=== PATIENT | male | born 1980 | race Hispanic/Latino ===

== ENCOUNTER 2019-11-23 12:49 | Emergency (ER) | payer BC, OTHER, SELFPAY ==
[2019-11-23] MEDS ORDERED: KETOROLAC 30 MG/ML INJ ONE (13:09)
[2019-11-23] MEDS ORDERED: DIAZEPAM 5 MG TABLET ONE (13:09)
--- NOTE | 2019-11-23 13:46 | ER ---
Nurse's Notes [facility] Name: Milo Harden Age: 39 yrs Sex: Male : 1980 Arrival Date: 11/23/2019 Time: 12:51 Bed 23 Private MD: Diagnosis: Low back pain Presentation: 11/23 12:52 Presenting complaint: Patient states: low back pain after lifting something heavy. sv 12:52 Acuity: MAURICE 4 sv 12:52 Method Of Arrival: Ambulatory sv 12:52 Transition of care: patient was not received from another setting of care. Onset of sv symptoms was November 22, 2019. 14:09 Risk Assessment: Do you want to hurt yourself or someone else? Patient reports no mg2 desire to harm self or others. Initial Sepsis Screen: Does the patient meet any 2 criteria? No. Patient's initial sepsis screen is negative. Initial Sepsis Screen: Does the patient have a suspected source of infection? No. Patient's initial sepsis screen is negative. Care prior to arrival: None. Historical: - Allergies: 12:53 No Known Allergies; sv - PMHx: 12:53 None; sv - PSHx: 12:53 None; sv - Immunization history:: Flu vaccine status is unknown. - Social history:: Patient/guardian denies using alcohol, street drugs, The patient lives with family, Smoking status: unknown. - Family history:: not pertinent. - Ebola Screening: : No symptoms or risks identified at this time. Screenin:05 Abuse screen: Denies threats or abuse. Nutritional screening: No deficits noted. em Tuberculosis screening: No symptoms or risk factors identified. Fall Risk None identified. Assessment: 13:30 General: Appears in no apparent distress. comfortable, Behavior is calm, cooperative. mg2 Pain: Complains of pain in back. Neuro: Level of Consciousness is awake, alert, obeys commands, Oriented to person, place, time, situation. Cardiovascular: Capillary refill < 3 seconds Patient's skin is warm and dry. Respiratory: Airway is patent Respiratory effort is even, unlabored, Respiratory pattern is regular, symmetrical. GI: No signs and/or symptoms were reported involving the gastrointestinal system. : No signs and/or symptoms were reported regarding the genitourinary system. EENT: No signs and/or symptoms were reported regarding the EENT system. Derm: Skin is intact, is healthy with good turgor, Skin is pink, warm \T\ dry. normal. Musculoskeletal: Circulation, motion, and sensation intact. Capillary refill < 3 seconds, Reports pain in back. 14:08 Reassessment: Patient appears in no apparent distress at this time. Patient states mg2 feeling better. Vital Signs: 12:53 BP 119 / 80; Pulse 71; Resp 18; Temp 98.1; Pulse Ox 100% ; Weight 72.57 kg; Height 5 sv ft. 8 in. (172.72 cm); Pain 9/10; 14:08 BP 120 / 78; Pulse 71; Resp 18; Temp 98; Pulse Ox 100% on R/A; mg2 12:53 Body Mass Index 24.33 (72.57 kg, 172.72 cm) sv ED Course: 12:51 Patient arrived in ED. as 12:52 Triage completed. sv 12:53 Arm band placed on. sv 12:58 Nery Avalos MD is Attending Physician. ma 13:01 Selwyn Leyva RN is Primary Nurse. em 13:05 Patient has correct armband on for positive identification. Bed in low position. Call em light in reach. 13:30 XRAY Lumbar Spine (3 Views) In Process Unspecified. EDMS 14:09 No provider procedures requiring assistance completed. Patient did not have IV access mg2 during this emergency room visit. Administered Medications: 13:14 Drug: Valium 10 mg Route: PO; em 14:07 Follow up: Response: No adverse reaction; Marked relief of symptoms mg2 13:15 Drug: TORadol 60 mg Route: IM; Site: right gluteus; em 14:07 Follow up: Response: No adverse reaction; Marked relief of symptoms mg2 Outcome: 13:45 Discharge ordered by . maBoby 14:09 Discharged to home ambulatory. mg2 14:09 Condition: stable 14:09 Discharge instructions given to patient, Instructed on discharge instructions, follow up and referral plans. medication usage, Demonstrated understanding of instructions, follow-up care, medications, Prescriptions given X 3. 14:10 Patient left the ED. mg2 Signatures: Dispatcher [employer] Carmina Muñoz RN RN Selwyn Leyva RN RN Elvia Frederick as Alzahri, Mohammad, MD MD ma2 Gardose, Meño, RN RN mg2
--- NOTE | 2019-11-23 13:47 | EDPHYS ---
Physician Documentation [facility] Name: Milo Harden Age: 39 yrs Sex: Male : 1980 Arrival Date: 11/23/2019 Time: 12:51 Bed 23 Private MD: ED Physician Nery Avalos HPI: 11/23 13:08 This 39 yrs old Male presents to ER via Ambulatory with complaints of Back ma2 Injury. 13:08 The patient presents with pain that is acute. The symptoms are located in the low back. ma2 Onset: The symptoms/episode began/occurred gradually, 1 day(s) ago. Associated signs and symptoms: Pertinent negatives: chest pain, dysuria, hematuria, nausea. Severity of symptoms: At their worst the symptoms were moderate, in the emergency department the symptoms are unchanged. The patient has experienced similar episodes in the past. Historical: - Allergies: 12:53 No Known Allergies; sv - PMHx: 12:53 None; sv - PSHx: 12:53 None; sv - Immunization history:: Flu vaccine status is unknown. - Social history:: Patient/guardian denies using alcohol, street drugs, The patient lives with family, Smoking status: unknown. - Family history:: not pertinent. - Ebola Screening: : No symptoms or risks identified at this time. ROS: 13:08 Constitutional: Negative for fever, chills, and weight loss. ma2 13:08 All other systems are negative. Exam: 13:08 Constitutional: This is a well developed, well nourished patient who is awake, alert, ma2 and in no acute distress. Neck: Trachea midline, no thyromegaly or masses palpated, and no cervical lymphadenopathy. Supple, full range of motion without nuchal rigidity, or vertebral point tenderness. No Meningismus. Chest/axilla: Normal chest wall appearance and motion. Nontender with no deformity. No lesions are appreciated. Cardiovascular: Regular rate and rhythm with a normal S1 and S2. No gallops, murmurs, or rubs. Normal PMI, no JVD. No pulse deficits. Respiratory: Lungs have equal breath sounds bilaterally, clear to auscultation and percussion. No rales, rhonchi or wheezes noted. No increased work of breathing, no retractions or nasal flaring. Abdomen/GI: Soft, non-tender, with normal bowel sounds. No distension or tympany. No guarding or rebound. No evidence of tenderness throughout. Back: No spinal tenderness. No costovertebral tenderness. Full range of motion. Male : Normal genitalia with no discharge or lesions. Skin: Warm, dry with normal turgor. Normal color with no rashes, no lesions, and no evidence of cellulitis. MS/ Extremity: Pulses equal, no cyanosis. Neurovascular intact. Full, normal range of motion. Neuro: Awake and alert, GCS 15, oriented to person, place, time, and situation. Cranial nerves II-XII grossly intact. Motor strength 5/5 in all extremities. Sensory grossly intact. Cerebellar exam normal. Normal gait. Vital Signs: 12:53 BP 119 / 80; Pulse 71; Resp 18; Temp 98.1; Pulse Ox 100% ; Weight 72.57 kg; Height 5 sv ft. 8 in. (172.72 cm); Pain 9/10; 14:08 BP 120 / 78; Pulse 71; Resp 18; Temp 98; Pulse Ox 100% on R/A; mg2 12:53 Body Mass Index 24.33 (72.57 kg, 172.72 cm) sv MDM: 12:58 Patient medically screened. ma2 13:08 Differential diagnosis: Scoliosis sprain, Ureterolithiasis vertebral fracture. Data ma2 reviewed: vital signs, nurses notes. Counseling: I had a detailed discussion with the patient and/or guardian regarding: the historical points, exam findings, and any diagnostic results supporting the discharge/admit diagnosis, the presence of at least one elevated blood pressure reading (>120/80) during this emergency department visit, the need for outpatient follow up. Response to treatment: the patient's symptoms have resolved after treatment. 11/23 12:59 Order name: XRAY Lumbar Spine (3 Views) ma2 Administered Medications: 13:14 Drug: Valium 10 mg Route: PO; em 14:07 Follow up: Response: No adverse reaction; Marked relief of symptoms mg2 13:15 Drug: TORadol 60 mg Route: IM; Site: right gluteus; em 14:07 Follow up: Response: No adverse reaction; Marked relief of symptoms mg2 Disposition: 11/23/19 13:45 Discharged to Home. Impression: Low back pain. - Condition is Stable. - Discharge Instructions: Back Pain, Adult. - Prescriptions for Tylenol- Codeine #3 300-30 mg Oral Tablet - take 2 tablet by ORAL route every 6 hours As needed; 30 tablet. Valium 5 mg Oral Tablet - take 1 tablet by ORAL route every 8 hours As needed; 20 tablet. Cyclobenzaprine 10 mg Oral Tablet - take 1 tablet by ORAL route every 8 hours As needed; 30 tablet. - Medication Reconciliation Form, Thank You Letter, Antibiotic Education, Prescription Opioid Use, Work release form form. - Follow up: Private Physician; When: Tomorrow; Reason: Continuance of care. Signatures: Dispatcher [employer] Carmina Muñoz RN RN Selwyn Leyva RN RN em Nery Avalos MD MD ma2 Meño Galvan RN RN mg2 Corrections: (The following items were deleted from the chart) 14:10 13:45 11/23/2019 13:45 Discharged to Home. Impression: Low back pain. Condition is mg2 Stable. Prescriptions for Tylenol-Codeine #3 300-30 mg Oral Tablet - take 2 tablet by ORAL route every 6 hours As needed; 30 tablet, Valium 5 mg Oral Tablet - take 1 tablet by ORAL route every 8 hours As needed; 20 tablet, Cyclobenzaprine 10 mg Oral Tablet - take 1 tablet by ORAL route every 8 hours As needed; 30 tablet. and Forms are Medication Reconciliation Form, Thank You Letter, Antibiotic Education, Prescription Opioid Use. Follow up: Private Physician; When: Tomorrow; Reason: Continuance of care. ma2
--- NOTE | 2019-11-23 14:34 | RAD REPORT ---
EXAM DESCRIPTION: RAD - Lumbar Spine 3 Views - 11/23/2019 1:35 pm CLINICAL HISTORY: Back pain FINDINGS: Minimal compression involves the superior endplate of the L1 vertebral body. Most likely t his is degenerative in nature. A minimal compression fracture can have this appearance however. If th e patient has clinical symptoms to suggest an acute fracture then MRI would be recommended. Alignment remainder lumbar spine is satisfactory. No dislocation.
[2019-11-23 17:25] VITALS: O2SAT 100
[2019-11-23 17:27] VITALS: BP 120/78; TEMP 98
== END 2019-11-23 14:10 | disposition home or self-care (01) ==
LOC: ER 12:49
DX: M54.5 Low back pain (principal); X50.0XXA Overexertion from strenuous movement or load, initial encounter; Y93.9 Activity, unspecified; Y92.9 Unspecified place or not applicable
CPT/HCPCS: 72100; 96372; 99283